=== PATIENT | male | born 1955 ===

== ENCOUNTER 2022-12-16 10:49 | Day surgery (SDC) | payer MEDICARE, BC ==
[~2022-12-16 10:49] MED LIST: Midazolam 1 MG/ML 2 ML SDV ONE; Propofol 200 MG/20 ML SDV ONE
[2022-12-16] MEDS ORDERED: Sodium Chloride 0.9% 10 ML Syringe FLUSH PRN (11:00)
[2022-12-16] MEDS ORDERED: Lactated Ringers 1,000 ML IV SCH (11:00)
== END 2022-12-16 13:34 | disposition home or self-care (01) ==
LOC: LL.SDS 10:49
PROVIDERS: ATTEND Surgery
DX: Z12.11 Encounter for screening for malignant neoplasm of colon (principal); K57.30 Diverticulosis of large intestine without perforation or abscess without bleeding; I10 Essential (primary) hypertension; E78.00 Pure hypercholesterolemia, unspecified; R73.03 Prediabetes; Z86.010 Personal history of colon polyps; Z79.899 Other long term (current) drug therapy; Z79.82 Long term (current) use of aspirin
CPT/HCPCS: J2250; J2704; J7120